=== PATIENT | male | born 1975 | race American Indian/Alaskan Native ===

== ENCOUNTER 2016-12-31 21:41 | Emergency (ER) | payer OTHER ==
[2016-12-31 21:56] VITALS: BP 163/118
[2017-01-01] MEDS ORDERED: NORCO 7.5/325 PO ONE (00:01)
--- NOTE | 2017-01-01 00:04 | Emergency Department Report ---
Upper Extremity - HPI Chief Complaint: Extremity Injury, Upper Stated Complaint: LT WRIST PAIN Time Seen by Provider: 12/31/16 23:59 Upper Extremity: Left Wrist, Left Hand Occurred When: 2 Days Mechanism: Unsure Severity: moderate, severe Symptoms: Yes Pain with Movement, Yes Swelling, No Deformity, No Limited Range of Movement, No Numbness, No Weakness, No Bruising/Ecchymosis, No Laceration or Abrasion Other History: 41-year-old -[place] male with no past medical history currently takes no meds comes in for left wrist swollen and painful for 2 days. Patient reports he woke up with left wrist pain and swelling. Patient's visit possible insect bite area noted in triage was warm to touch. ED Review of Systems ROS: Stated complaint: LT WRIST PAIN Other details as noted in HPI Constitutional: chills, fever Respiratory: denies: cough, shortness of breath, wheezing Cardiovascular: as per HPI Endocrine: no symptoms reported Gastrointestinal: denies: abdominal pain, nausea, diarrhea Genitourinary: as per HPI Musculoskeletal: denies: back pain, joint swelling, arthralgia Skin: other (red swelling warm to touch left wrist) Neurological: denies: headache, weakness, paresthesias Psychiatric: denies: anxiety, depression Hematological/Lymphatic: denies: easy bleeding, easy bruising ED Past Medical Hx - Past Medical History Previous Medical History?: No - Surgical History Past Surgical History?: No Additional Surgical History: hernia repair - Social History Smoking Status: Current Every Day Smoker Substance Use Type: Alcohol - Medications Home Medications: Home Medications Medication Instructions Recorded Confirmed Last Taken Type Cephalexin [Keflex] 500 mg PO QID #40 capsule 01/01/17 Unknown Rx Ibuprofen [Motrin 600 MG tab] 600 mg PO Q8H PRN #30 tablet 01/01/17 Unknown Rx Upper Extremity Exam - Exam General: Vital signs noted. No distress. Alert and acting appropriately. Head and Torso: No HEENT Abnormality, No Neck Tenderness, No Chest/Lungs Abnormality, No Abdominal Tenderness, No Back Tenderness Shoulder Exam: Yes Normal Range of Motion in Shoulder, Yes AC Joint Tenderness, No Shoulder Tenderness, No Clavicle Tenderness, No Shoulder Deformity Arm Exam: No Arm/Humerus Tenderness, No Arm Deformity Elbow: Yes Normal Range of Motion in Elbow, No Elbow Tenderness, No Elbow Deformity Wrist: Yes Wrist Tenderness, Yes Normal ROM in Wrist, No Wrist Deformity, No Snuffbox Tenderness, No Pain with Axial Thumb Compression Hand: Yes Hand Tenderness, Yes Normal ROM in Digit(s), No Hand Deformity, No Digit Tenderness, No Digit(s) Deformity CMS Exam: Yes Normal Distal Pulses, Yes Normal Capillary Refill, Yes Normal Distal Sensation, No Broken Skin ED Course Vital Signs 12/31/16 12/31/16 21:53 21:58 Temperature 99.4 F 99.4 F Pulse Rate 77 77 Respiratory 18 18 Rate Blood Pressure 163/118 Blood Pressure 163/118 [Right] O2 Sat by Pulse 99 100 Oximetry ED Medical Decision Making - Radiology Data Radiology results: report reviewed, image reviewed interpreted by me: X-ray is normal X-ray is within normal limits - Medical Decision Making Patient is being evaluated by this provider fast track. Discussed with patient that we will do an x-ray of his left wrist just to rule out any abnormalities or osteomyelitis. Discussed with patient that we will give him a pain medication for pain and will treat his cellulitis with antibiotics and pain medication. Patient verbalized understanding. Critical care attestation.: If time is entered above; I have spent that time in minutes in the direct care of this critically ill patient, excluding procedure time. ED Disposition Clinical Impression: Cellulitis of hand excluding fingers Disposition: DISCHARGED TO HOME OR SELFCARE Is pt being admited?: No Does the pt Need Aspirin: No Condition: Stable Instructions: Cellulitis (ED) Additional Instructions: Take antibiotics as prescribed. Take the ibuprofen as prescribed for pain management. Follow-up with her primary care provider in 3-5 days for evaluation of the cellulitis. Prescriptions: Cephalexin [Keflex] 500 mg PO QID #40 capsule Ibuprofen [Motrin 600 MG tab] 600 mg PO Q8H PRN #30 tablet PRN Reason: Pain Referrals: PRIMARY CARE, [Primary Care Provider] - 3-5 Days Forms: Accompanied Note, Work/School Release Form(ED)
--- NOTE | 2017-01-01 01:01 | XRay Report ---
FINAL REPORT PROCEDURE: XR HAND 3 LT TECHNIQUE: LEFT hand radiographs, AP, lateral, and oblique views. CPT 38033-BR HISTORY: Right hand pain and swelling and redness COMPARISON: No prior studies are available for comparison. FINDINGS: Fracture (s) and/or Dislocation(s): None . Alignment: Normal . Joint space(s): Normal . Soft tissues: Normal . Bone mineralization: Normal . Foreign bodies: None . IMPRESSION: At this time there is no plain film evidence of fracture or dislocation or acute finding..
== END 2017-01-01 01:12 | disposition home or self-care (01) ==
LOC: ED 21:41
DX: L03.114 Cellulitis of left upper limb (principal); F17.200 Nicotine dependence, unspecified, uncomplicated
CPT/HCPCS: 99283